=== PATIENT | female | born 1950 | race Caucasian/White ===

== ENCOUNTER 2024-07-20 12:05 | Emergency (ER) | payer MEDICARE, MEDICAID ==
[~2024-07-20] VITALS: Ht 168.9 cm; Wt 83.4 kg
[2024-07-20 12:06] VITALS: BP 190/86; PULSE 105; RESP 16; O2SAT 98
[2024-07-20 12:45] LABS: BILIRUBIN,URINE NEGATIVE (Neg); CLARITY,URINE CLEAR (Clear); COLOR,URINE YELLOW (Yellow); GLUCOSE, URINE >=1000 mg/dl (Neg); KETONES,URINE TRACE mg/dl (Neg); LEUKOCYTE ESTERASE ,URINE NEGATIVE (Neg); NITRITES, URINE POSITIVE (Neg); OCCULT BLOOD,URINE NEGATIVE (Neg); PROTEIN,URINE NEGATIVE (Neg); UROBILINOGEN,URINE 0.2 E.U/dL (0.2-1.0)
[2024-07-20 12:50] LABS: UA COLLECTION TYPE CLN CATCH MIDSTREAM
[2024-07-20 12:52] LABS: BACTERIA,URINE NONE SEEN /HPF (Neg); MUCUS STRANDS NONE SEEN /LPF (Neg); RBC,URINE NONE SEEN /HPF (0-2); SQUAMOUS EPITHELIAL CELL,UR NONE SEEN /LPF (FEW); WBC,URINE 0-4 /HPF (0-4)
[2024-07-20] MEDS: LIDOcaine 5% patch TP STA (12:52)
[2024-07-20] MEDS ORDERED: CYCL-920 PO (13:08)
[2024-07-20] MEDS ORDERED: NITR100C6 PO (13:08)
[2024-07-20] MEDS ORDERED: LIDO700A32 TD (13:09)
[2024-07-20] MEDS ORDERED: LIDO700A32 TOP (13:09)
[2024-07-20] MEDS ORDERED: HYDR-3965 PO (13:57)
[2024-07-20 14:05] VITALS: TEMP 98
== END 2024-07-20 14:12 | disposition home or self-care (01) ==
LOC: ER 12:06
DX: M54.32 Sciatica, left side (principal); N39.0 Urinary tract infection, site not specified; Z88.0 Allergy status to penicillin; Z88.2 Allergy status to sulfonamides; Z88.1 Allergy status to other antibiotic agents
CPT/HCPCS: 81001; 99283

== ENCOUNTER 2024-07-23 13:33 | Emergency (ER) | payer MEDICARE, MEDICAID ==
[~2024-07-23] VITALS: Ht 167.6 cm; Wt 77.4 kg
[~2024-07-23 13:33] MED LIST: CYCL-920 PO; HYDR-3965 PO; LIDO700A32 TD; LIDO700A32 TOP; NITR100C6 PO
[2024-07-23] MEDS ORDERED: HYDR-3965 PO (15:58)
[2024-07-23 16:29] LABS: BILIRUBIN,URINE NEGATIVE (Neg); CLARITY,URINE CLEAR (Clear); COLOR,URINE YELLOW (Yellow); GLUCOSE, URINE >=1000 mg/dl (Neg); KETONES,URINE NEGATIVE (Neg); LEUKOCYTE ESTERASE ,URINE NEGATIVE (Neg); NITRITES, URINE NEGATIVE (Neg); OCCULT BLOOD,URINE NEGATIVE (Neg); PROTEIN,URINE NEGATIVE (Neg); UROBILINOGEN,URINE 0.2 E.U/dL (0.2-1.0)
[2024-07-23 16:34] LABS: UA COLLECTION TYPE CLN CATCH MIDSTREAM
[2024-07-23 16:36] LABS: BACTERIA,URINE FEW /HPF (Neg); MUCUS STRANDS FEW /LPF (Neg); RBC,URINE 0-2 /HPF (0-2); SQUAMOUS EPITHELIAL CELL,UR FEW /LPF (FEW); WBC,URINE 0-4 /HPF (0-4)
[2024-07-23 17:02] VITALS: BP 148/72; PULSE 69; RESP 16; TEMP 98; O2SAT 98
== END 2024-07-23 17:40 | disposition home or self-care (01) ==
LOC: ER 13:33
DX: M54.32 Sciatica, left side (principal); N39.0 Urinary tract infection, site not specified; E11.9 Type 2 diabetes mellitus without complications; Z88.0 Allergy status to penicillin; Z88.2 Allergy status to sulfonamides; Z88.1 Allergy status to other antibiotic agents; Z79.899 Other long term (current) drug therapy
CPT/HCPCS: 81001; 99283